=== PATIENT | female | born 1995 | race Caucasian/White ===

== ENCOUNTER 2024-12-20 16:32 | Day surgery (SDC) | payer OTHER ==
[~2024-12-20] VITALS: Ht 157.5 cm; Wt 117.9 kg
[~2024-12-20 16:32] MED LIST: SEVOFLURANE 250 ML BTL INH ONE
[2024-12-20] MEDS ORDERED: ZYRTEC10 MG PO (17:08)
[2024-12-20] MEDS ORDERED: PRENATAL FORMU1 EAC3 PO (17:08)
[2024-12-20 17:40] LABS: BILIRUBIN, URINE NEGATIVE (negative); BLOOD/HGB, URINE LARGE (Negative); KETONE, URINE NEGATIVE (Negative); LEUK ESTERASE, URINE NEGATIVE (negative); NITRITE, URINE NEGATIVE (negative); PH, URINE 5.5 (5-7)
[2024-12-20 17:40] LABS: BASOPHILS 1.2 % (0-2); EOSINOPHILS 1.9 % (0-6); HEMATOCRIT 40.6 % (35.0-50.0); HEMOGLOBIN 13.8 g/dL (12.0-18.0); LYMPHOCYTES 25.9 % (24-44); MCHC 33.9 g/dl (30-36); MCV 88.5 fl (81-99); MONOCYTES 9.1 % (0-12); NEUTROPHILS 61.9 % (39-80); PLATELET COUNT 338 K/uL (140-440); RBC 4.59 M/ul (4.3-5.7); RDW 14.3 (10.5-15.0)
[2024-12-20 17:46] LABS: CRYSTALS, URINE NONE SEEN (0-1+); EPITHELIAL CELLS, URINE 0 /lpf (0-1+); RED BLOOD CELLS, URINE >50 /hpf (0-5)
[2024-12-20 17:47] LABS: BACTERIA, URINE NONE SEEN /hpf (negative); CASTS, URINE NONE SEEN \\lpf; COLLECTION TYPE, URINE CLEAN CATCH; REFLEX CULTURE, URINE No (No)
[2024-12-20 17:59] LABS: ANION GAP 14.7 (7-21); BUN/CREATININE RATIO 9.72 (6.0-28.6); CALCIUM 9.3 mg/dL (8.5-10.1); CREATININE, SERUM 0.72 mg/dL (0.55-1.02); POTASSIUM 3.7 mmol/L (3.5-5.1)
[2024-12-20 18:37] LABS: ABO A; ANTIBODY SCREEN NEGATIVE; RH POSITIVE
[2024-12-20] MEDS ORDERED: LACTATED RINGER'S 1,000 ML IV SCH (20:11)
[2024-12-20] MEDS ORDERED: ondansetron HCL 4 MG/2 ML VIAL IV ONE (20:15)
[2024-12-20] MEDS ORDERED: DOXYCYCLINE HYCLATE 100 MG CAP PO ONE (20:15)
[2024-12-20] MEDS ORDERED: LIDOCAINE HCL 2% 5 ML SDV ONE (20:51)
[2024-12-20] MEDS ORDERED: propofoL 200 MG/20 ML VIAL ONE ×2 (20:51→21:04)
[2024-12-20] MEDS ORDERED: fentaNYL citrate 100 MCG/2 ML VIAL ONE (20:51)
[2024-12-20] MEDS ORDERED: DEXAMETHASONE SOD PHOS 4 MG/ML VIAL ONE (21:04)
[2024-12-20] MEDS ORDERED: KETOROLAC TROMETHAMINE 30 MG/ML VIAL ONE (21:04)
[2024-12-20] MEDS ORDERED: MIDAZOLAM HCL 2 MG/2 ML VIAL ONE ×2 (21:05→21:47)
[2024-12-20] MEDS ORDERED: SUCCINYLCHOLINE IN 0.9% NACL 200 MG/10 ML SYRINGE ONE (21:09)
[2024-12-20] MEDS ORDERED: ACETAMINOPHEN 1,000 MG/100 ML VIAL ONE (21:32)
--- NOTE | 2024-12-20 21:44 | NUR ---
12/20/242143 Ceci Prutit 2135: PT ARRIVES TO PACU AWAKE. SHE IS EMOTIONAL AND CRYING. DENIES PAIN OR NAUSEA AT THIS TIME. SHE IS ABLE TO COMMUNICATE APPROPRIATELY.
[2024-12-20] MEDS ORDERED: FAMOTIDINE 20 MG TAB PO PRN (21:45)
[2024-12-20] MEDS ORDERED: MAGNESIUM HYDROXIDE/AL HYDROX 30 ML CUP PO PRN (21:45)
[2024-12-20] MEDS ORDERED: NALOXONE HCL 0.4 MG SYR IV PRN (21:45)
[2024-12-20] MEDS ORDERED: ondansetron HCL 4 MG/2 ML VIAL IV PRN (21:45)
[2024-12-20] MEDS ORDERED: HYDROmorphone HCL 1 MG/ML SYR IV PRN (21:45)
[2024-12-20] MEDS ORDERED: PROCHLORPERAZINE EDISYLATE 10 MG/2 ML VIAL IV PRN (21:45)
[2024-12-20] MEDS ORDERED: OXYCODONE/APAP 5/325 TAB PO PRN (21:45)
--- NOTE | 2024-12-20 22:06 | NUR ---
pt ARRIVED FROM PACU, PRIMARY RENE ESTRELLA IN ROOM OBTAINING BEDSIDE REPORT. pt AWAKE AND RESTING IN BED, A/OX4. ON RA, RR EVEN AND UNLABORED. VSS, ADMISSION COMPLETED AND POC DISCUSSED. IV SITE WNL, SALINE LOCKED. CALL LIGHT IN REACH. PRIMARY RENE ESTRELLA COMPLETING pt CARES IN ROOM.
[2024-12-20 22:14] VITALS: BP 111/79
[2024-12-20 22:56] VITALS: BP 124/80
--- NOTE | 2024-12-20 23:55 | NUR ---
pt ARRIVED TO THE FLOOR VIA STRETCHER. pt ABLE TO MOVE OVER TO THE BED BY SCOOTING HER SELF. pt DENIES ANY PAIN AT THAT TIME (2208) AND THROUGH OUT THE STAY. pt WAS ABLE TO EAT AND DRINK WITH NO NAUSEA AND ALSO VOID WITH OUT ANY TROUBLES WELL. pt TOLERATES MOVMENT WELL. DISCHARGE INSTRUCTIONS GIVEN. pt REPEATED BACK AND UNDERSTOOD INSTRUCTIONS. VSS THROUGH OUT pt STAY. 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
[2024-12-21 00:04] VITALS: BP 124/71
[2024-12-21 00:05] VITALS: BP 124/71
--- NOTE | 2024-12-21 01:44 | PREHP ---
[facility] [address], [place] [address] Signed ADMISSION DATE: 12/20/2024 CHIEF COMPLAINT: Vaginal bleeding. HISTORY OF PRESENT ILLNESS: The patient is a very pleasant 29-year-old G4, P1-0-2-1, who presented to the emergency department with vaginal bleeding and a known missed miscarriage. The patient reports missed miscarriage in August at her hometown of [place] at approximately six weeks. She had no interval. Following her D and C, but did have some early vaginal bleeding with this . She was diagnosed with a six weeks missed miscarriage with no cardiac activity noted in [place]. She and her are moving from [place] to [place] as he is in the . She is NICU nurse. She reports they had planned expectant management despite their travels. She had some bleeding for the past several days, but significantly increased this morning. She did pass some tissue and then had increased clots and bleeding. They decided to be evaluated in the emergency department. Since presenting here, she reports her bleeding has significantly decreased. She has A positive blood type. She reports no lightheadedness or dizziness. She has not had a workup for recurrent loss at this point. Desires suction D and C for management of her miscarriage. PAST MEDICAL HISTORY: 1. Hyperlipidemia. 2. Chronic idiopathic urticaria that has minimal flares. PAST SURGICAL HISTORY: 1. Dilation and curettage. 2. Tonsils and adenoids in 1998. MEDICATIONS: 1. Zyrtec. 2. vitamin. ALLERGIES: 1. Penicillin. 2. Latex. SOCIAL HISTORY: PRINTED CIRCUIT BOARD ASSEMBLER. Rare alcohol when not . No tobacco or recreational drugs. PHYSICAL EXAMINATION: VITAL SIGNS: Temperature 98.6, pulse 97, respiratory rate 16, blood pressure 145/92, pulse ox 98. Electronically Signed By: GABO OJEDA DO (JD) 12/21/24 0144 PATIENT NAME: MONICA JEFFERS PREOPERATIVE H&P DATE OF : [birth year] REPORT #: [id number] PHYSICIAN: GABO OJEDA (MAY) DO PCP: NO PRIMARY CARE PHYSICIAN REPORT IS CONFIDENTIAL AND NOT TO BE RELEASED WITHOUT AUTHORIZATION [facility] [address], [place] [address] Signed GENERAL: The patient is lying in bed, comfortable appearing with at the bedside. No acute distress. HEENT: Normocephalic, atraumatic. SKIN: Normal color with no mottling. NECK: Supple. Trachea midline. HEART: Regular rate and rhythm. LUNGS: Clear to auscultation bilaterally. ABDOMEN: Soft, nondistended, nontender. With no masses or hernias. Pelvic deferred. EXTREMITIES: No edema. LABORATORY DATA: WBCs 8.9, hemoglobin 13.8, platelets 338, creatinine 0.72. Quantitative hCG 5500. Blood type A positive, confirmed. Imaging transvaginal ultrasound demonstrates uterus 9.3 x 5.6 x 4.2 cm, normal contour. Endometrium is heterogeneous with areas of internal flow measuring 14 mm. Right ovary not visualized. Left ovary normal in appearance. Concern for heterogeneous endometrium with likely retained products of conception. ASSESSMENT: Incomplete miscarriage with hemorrhage without anemia. Recurrent loss PLAN: I reviewed options for management of missed miscarriage. Plan, we will proceed with suction D and C. We reviewed the procedure in detail including risks, benefits, and alternatives. I reviewed preoperative antibiotics and no heparin indicated. I did have a long conversation regarding patient's recurrent loss. We recommend that she follow up with a new spud sorter in [place] to discuss workup of recurrent loss that would likely include imaging or hysteroscopy of the uterus, anti-phospholipid screening, and possibly chromosomal analysis. We did review the patient's labs and ultrasound findings. Discussed her risks, may include hemorrhage surgery requiring additional procedures and/or blood transfusion. Reviewed risk of intrauterine adhesion or retained products of conception and techniques to avoid these. The patient understands and wished to proceed with procedure. building maintenance supervisor was notified and the OR crew is en route. DO KAMALJIT Vasquez/MODL /[id number] Electronically Signed By: GABO OJEDA DO (JD) 12/21/24 0144 PATIENT NAME: MONICA JEFFERS PREOPERATIVE H&P DATE OF : [birth year] REPORT #: [id number] PHYSICIAN: GABO OJEDA DO (JD) PCP: NO PRIMARY CARE PHYSICIAN REPORT IS CONFIDENTIAL AND NOT TO BE RELEASED WITHOUT AUTHORIZATION [facility] [address] [facility] [place], [place] [address] Signed Copies: ~ Electronically Signed By: GABO OJEDA DO (JD) 12/21/24 0144 PATIENT NAME: MONICA JEFFERSABELL PREOPERATIVE H&P DATE OF : [birth year] REPORT #: [id number] PHYSICIAN: GABO OJEDA DO (JD) PCP: NO PRIMARY CARE PHYSICIAN REPORT IS CONFIDENTIAL AND NOT TO BE RELEASED WITHOUT AUTHORIZATION
--- NOTE | 2024-12-21 01:45 | OR ---
[facility] [address], [place] [address] Signed DATE OF OPERATION: 12/20/2024 SURGEON: Gabo Santillan DO PREOPERATIVE DIAGNOSES: 1. Incomplete miscarriage. 2. Recurrent loss. 3. Rh positive. POSTOPERATIVE DIAGNOSES: 1. Incomplete miscarriage. 2. Recurrent loss. 3. Rh positive. PROCEDURE PERFORMED: Suction dilation and curettage. ANESTHESIA: MAC that was converted to general anesthetic. ESTIMATED BLOOD LOSS: 25 mL. SPECIMEN: Products of conception. FINDINGS: Normal external genitalia, clitoris, urethral meatus, bilateral Rossford's, Bartholin's gland. Normal vagina. Cervix was dilated with no bleeding or products of conception of the cervical os. Minimal products of conception with suction curettage and gentle uterine probe. Hemostatic at the end of the procedure. COMPLICATIONS: None. INDICATIONS: Ms. Jeffers is a very pleasant 29-year-old, G4, P1-0-2-1 with known early miscarriage. She and her are moving from [place] to [place] and was diagnosed with a missed miscarriage just prior to leaving [place]. The patient had elected for expectant management and developed heavy bleeding with clots and passage of tissue on the drive Electronically Signed By: GABO SANTILLAN DO (JD) 12/21/24 0145 PATIENT NAME: MONICA JEFFERS OPERATIVE REPORT DATE OF : [birth year] REPORT #: [id number] PHYSICIAN: GABO SANTILLAN (MAY) DO PCP: NO PRIMARY CARE PHYSICIAN REPORT IS CONFIDENTIAL AND NOT TO BE RELEASED WITHOUT AUTHORIZATION [facility] [address] [place], [place] [address] Signed today. She presented to the emergency department with ultrasound demonstrating retained products of conception. The patient desired suction D and C. Risks, benefits, and alternatives were discussed in detail with the patient. The patient understands and wished to proceed with the procedure. TECHNIQUE: The patient was taken to the OR where a time-out was performed to confirm correct patient and correct procedure. MAC anesthesia was established. The patient was prepped and draped in the dorsal lithotomy position with feet in Yellofin stirrups. ICPs were on a running and patient received doxycycline 200 mg p.o. prior to the procedure per SCIP protocol. No heparin was indicated. The patient was noted to not have adequate anesthesia with MAC, and this was converted to general intubation with ET tube. Once the patient was comfortable, a weighted speculum was placed in the vagina and the anterior lip of the cervix was grasped with an Allis clamp. The cervix was noted to be grossly dilated with no bleeding or products of conception noted at the os. The cervix was gently dilated to #12 Hegar dilator and a 12 curved curette was selected. This was gently advanced to the uterine fundus and suction was obtained to the green zone. The curette was slowly withdrawn while performing circumferential curettage. Minimal products of conception were noted in the suction tubing. No bleeding was noted. A 2nd pass was performed again with minimal products of conception. A sharp curette was selected and the uterine cavity was very gently probed with no additional products of conception noted. One final pass with the suction curettage was performed and hemostasis was appreciated in the uterus noted to be involuted. The patient was then taken to PACU in good and stable condition. Sponge, needle and instrument counts were correct x2 at the end the procedure. Gabo Santillan DO JMILLER/MODL /[id number] Electronically Signed By: GABO SANTILLAN (JD), DO 12/21/24 0145 PATIENT NAME: MONICA JEFFERSABELL OPERATIVE REPORT DATE OF : [birth year] REPORT #: [id number] PHYSICIAN: GABO SANTILLAN DO (JD) PCP: NO PRIMARY CARE PHYSICIAN REPORT IS CONFIDENTIAL AND NOT TO BE RELEASED WITHOUT AUTHORIZATION [facility] [address] [place] [address] Signed Copies: ~ Electronically Signed By: GABO SANTILLAN (JD), DO 12/21/24 0145 PATIENT NAME: MONICA JEFFERS OPERATIVE REPORT DATE OF : [birth year] REPORT #: [id number] PHYSICIAN: GABO SANTILLAN (MAY) PCP: NO PRIMARY CARE PHYSICIAN REPORT IS CONFIDENTIAL AND NOT TO BE RELEASED WITHOUT AUTHORIZATION
--- NOTE | 2024-12-22 14:42 | PATH ---
[facility] [address] [facility] [place], [place] [address] Signed SPECIMEN(S): A PRODUCTS OF CONCEPTION SPECIMEN SOURCE: A. PRODUCTS OF CONCEPTION CLINICAL HISTORY: Missed AB FINAL PATHOLOGIC DIAGNOSIS: Products of conception: - Products of conception identified BRP MICROSCOPIC EXAMINATION: Histologic sections of all submitted blocks are examined by light microscopy. These findings, together with the gross examination, support the pathologic diagnosis. GROSS DESCRIPTION: The specimen, labeled and designated "Ramiro Jeffers, products of conception," is received in formalin and consists of a 4 x 3.4 x 1 cm aggregate of colvin-brown friable tissue fragments admixed with brown-red congealed blood. There is no discrete villous tissue or parts. No membranes are identified. Die Cast Supervisor sections are submitted cassette A1. AA (under the direct supervision of a pathologist) The Gross Description was prepared using a voice recognition system. The report was reviewed for accuracy; however, sound-alike word errors, addition and/or deletions may occur. If there is any question about this report, please contact Client Services. ADDITIONAL NOTES: Immunohistochemical and/or in situ hybridization studies if performed in this case included appropriate positive controls that reacted as expected. This test was developed and its performance characteristics determined by [facility]. It has not been cleared or approved by the U.S. Food and Drug Administration. The FDA has determined that such clearance or approval is not necessary. This test is used for clinical purposes. It should not be regarded as investigational or for research. [facility] is certified under the Clinical Laboratory Improvement PATIENT NAME: MONICA JEFFERS PATHOLOGY DATE OF : [birth year] REPORT #: [id number] PHYSICIAN: YASMANI KAISER PCP: NO PRIMARY CARE PHYSICIAN REPORT IS CONFIDENTIAL AND NOT TO BE RELEASED WITHOUT AUTHORIZATION [facility] [address] [facility] [place], [place] [address] Signed Amendments of 1988 (CLIA) as qualified to perform high complexity clinical laboratory testing. PERFORMING LABORATORY: Technical component was performed by [facility], [address] [place] [address] (CLIA# [id number]). Professional interpretation was performed by [facility], [address] [place] [address] (CLIA#: [id number]). Diagnostician: Simon Saenz MD Pathologist Electronically Signed 12/22/2024 Copies: ~ PATIENT NAME: MONICA JEFFERS PATHOLOGY DATE OF : [birth year] REPORT #: [id number] PHYSICIAN: YASMANI KAISER PCP: NO PRIMARY CARE PHYSICIAN REPORT IS CONFIDENTIAL AND NOT TO BE RELEASED WITHOUT AUTHORIZATION
== END 2024-12-21 00:02 | disposition home or self-care (01) ==
LOC: ED 16:32 → DSVR 20:24 → DS 20:24 → MS 21:41 → DS 12-21 00:02
PROVIDERS: Emergency Medicine; ATTEND Obstetrics & Gynecology
PROC: 10D18ZZ Extraction of Products of Conception, Retained, Via Natural or Artificial Opening Endoscopic (ICD-10-PCS; principal; 2024-12-20 21:00)
DX: O03.4 Incomplete spontaneous abortion without complication (principal); N96 Recurrent pregnancy loss; L50.1 Idiopathic urticaria; E78.00 Pure hypercholesterolemia, unspecified; Z67.10 Type A blood, Rh positive; Z79.899 Other long term (current) drug therapy; Z88.0 Allergy status to penicillin; Z91.040 Latex allergy status
CPT/HCPCS: 01965; 36415; 76830; 76856; 80048; 81001; 84702; 84703; 85025; 86850; 86900; 86901; 88305; 96374; 99285-25; J0131; J0330; J1100; J1885; J2003; J2250; J2405; J2704; J3010; J7121